=== PATIENT | female | born 1945 | race Caucasian/White ===

== ENCOUNTER 2017-09-20 14:07 | Emergency (ER) | payer OTHER ==
[~2017-09-20] VITALS: Ht 149.9 cm; Wt 94.8 kg
[~2017-09-20 14:07] MED LIST: BARIATRIC FUSION; BYETTA PEN 11 PENINJ SC; CALCIUM CITRAT250 MG; CELEBREX 200 M200 MG; COUMADIN 5 MG TA5 M1; CYCLOBENZAPRINE PO; CYMBALTA60 MG PO; DILTIAZEM PO; HUMALOG100 UNIT/1 SQ; LANTUS SC; LISINOPRIL40 MG PO; LOPRESSOR25; LOVENOX SC; LYRICA 50 MG50 MG PO; METFORMIN ER PO; NORCO 5-325 TA1 EACH PO; OXYIR5 MG PO; PERCOCET 5-3251 EACH PO; POTASSIUM20 PO; PRILOSEC40 MG; TAMBOCOR 100 M100 M1; TRIAMTERENE-HC1 EAC1 PO; ULTRAM 50MG TAB50 MG PO; VICODIN 5-5001 EACH; VIOKASE 8 TABL468 MG PO
[2017-09-20] MEDS ORDERED: METFORMIN HCL500 MG PO (14:17)
[2017-09-20] MEDS ORDERED: VALIUM5 MG PO (14:18)
[2017-09-20] MEDS ORDERED: OXYCODONE HCL 55 MG PO (14:18)
[2017-09-20] MEDS ORDERED: TYLENOL EXTRA500 MG PO (14:19)
[2017-09-20 14:51] LABS: ABSOLUTE BASOPHILS 0.1 thou/uL (0.0-0.2); ABSOLUTE EOSINOPHILS 0.1 thou/uL (0.0-0.7); ABSOLUTE LYMPHOCYTES 1.5 thou/uL (0.8-5.3); ABSOLUTE MONOCYTES 0.6 thou/uL (0.0-1.2); ABSOLUTE NEUTROPHILS 6.7 thou/uL (1.6-8.1); BASOPHILS 1.2 %; HEMATOCRIT 39.9 % (37.0-47.0); HEMOGLOBIN 13.1 gm/dL (12.0-15.0); MCH 28.2 pg (26.0-34.0); MCHC 32.9 g/dL (28.0-37.0); MCV 85.6 fL (80.0-100.0); MONOCYTES 6.3 %; MPV 9.1 fl. (7.2-11.1); NUCLEATED RBCS 0 /100WBC; PLATELET COUNT* 268 thou/uL (150-400); POLYS 74.5 %; RBC 4.66 mil/uL (4.20-5.00); RDW-CV 15.4 % (10.5-14.5)
[2017-09-20 14:55] LABS: ANION GAP 7 mmol/L (7-16); BUN 29 mg/dL (7-18); CALCIUM 9.8 mg/dL (8.5-10.1); CHLORIDE 101 mmol/L (98-107); CO2 31 mmol/L (21-32); CREATININE 0.8 mg/dL (0.6-1.3); GLUCOSE 150 mg/dL (70-99); POTASSIUM 4.5 mmol/L (3.5-5.1); SODIUM 139 mmol/L (136-145)
[2017-09-20 15:00] LABS: APTT 33.4 Seconds (25.0-31.3); INR 1.7; PROTIME 16.3 Seconds (9.20-11.50)
[2017-09-20 15:02] LABS: ALBUMIN 3.3 g/dL (3.4-5.0); ALKALINE PHOSPHATASE 62 U/L (46-116); SGOT 25 U/L (15-37); SGPT 29 U/L (30-65); TOTAL BILIRUBIN 0.3 mg/dL (<0.1-1.0); TOTAL PROTEIN 7.4 g/dL (6.4-8.2); TROPONIN-I LEVEL <0.06 ng/mL (<0.06)
[2017-09-20 16:11] LABS: URINE BILIRUBIN NEGATIVE (Negative); URINE BLOOD NEGATIVE (Negative); URINE CLARITY SL CLOUDY; URINE COLOR YELLOW; URINE GLUCOSE-RANDOM NEGATIVE (Negative); URINE KETONES NEGATIVE (Negative); URINE LEUKOCYTES-REFLEX NEGATIVE (Negative); URINE NITRITE-REFLEX NEGATIVE (Negative); URINE PROTEIN NEGATIVE (Negative); URINE UROBILINOGEN 0.2 E.U./dl (0.2-1.0)
[2017-09-20 16:23] LABS: BACTERIA-REFLEX >30 Many /HPF (None Seen); CRYSTALS None Seen /LPF (None Seen); HYALINE CASTS 0-3 Few /LPF (None Seen); SQUAMOUS >10 Many /LPF (0-3)
[2017-09-20 16:24] LABS: URINE RBC None Seen /HPF (0-2); URINE WBC-REFLEX 0-5 Rare /HPF (0-5)
[2017-09-20 17:26] VITALS: BP 148/67
--- NOTE | 2017-09-21 18:41 | EKG ---
[place] [address] ELECTROCARDIOGRAM REPORT Name: YANY CROUCH Room: [facility]#: [id number] Admission: 09/20/17 Attend Phys: Discharge: 09/20/17 Date of : 41 Report #: [id number] THIS REPORT FOR: //name// [facility] ED Test Date: 2017-09-20 Test Time: 14:56:29 Pat Name: YANY CROUCH Department: Room: Gender: F News Copy Editor: LING : 1945 Requested By: Susan Sandoval Order Number: [id number] MD: Gerard Mackenzie Measurements Intervals [place] Rate: 85 P: 37 CA: 162 QRS: 8 QRSD: 112 T: 93 QT: 397 QTc: 472 Interpretive Statements Sinus rhythm Borderline intraventricular conduction delay Compared to ECG 03/14/2011 00:55:04 No significant changes Electronically Signed On 09-21-2017 18:40:58 CDT by Gerard Mackenzie [email or web address] <ELECTRONICALLY SIGNED> By: Gerard Mackenzie MD, [facility] 09/21/17 1840 [id number] 145 Gerard Mackenzie MD, FACC /EPI
== END 2017-09-20 17:27 | disposition home or self-care (01) ==
LOC: M.ERS 14:07
PROVIDERS: Nurse Practitioner Family
DX: R53.1 Weakness (principal); I10 Essential (primary) hypertension; E11.9 Type 2 diabetes mellitus without complications; G47.30 Sleep apnea, unspecified; M79.7 Fibromyalgia; Z90.49 Acquired absence of other specified parts of digestive tract

== ENCOUNTER → 2018-02-02 | Outpatient (CLI) | payer OTHER ==
[~2018-02-02] MED LIST changes: +METFORMIN HCL500 MG PO; +OXYCODONE HCL 55 MG PO; +TYLENOL EXTRA500 MG PO; +VALIUM5 MG PO
== END ==
LOC: M.RAD 10:29
DX: M16.0 Bilateral primary osteoarthritis of hip (principal); M25.551 Pain in right hip; M25.552 Pain in left hip; Z68.41 Body mass index [BMI] 40.0-44.9, adult

== ENCOUNTER → 2018-03-22 | Outpatient (CLI) | payer OTHER ==
[2018-03-22 08:49] LABS: INR 1.1
[2018-03-22 08:53] LABS: POTASSIUM 3.4 mmol/L (3.5-5.1)
== END ==
LOC: M.LAB 01:04
PROVIDERS: Internal Medicine Gastroenterology
DX: Z01.812 Encounter for preprocedural laboratory examination (principal); E11.9 Type 2 diabetes mellitus without complications; Z79.01 Long term (current) use of anticoagulants

== ENCOUNTER → 2018-05-21 | Outpatient (CLI) | payer OTHER ==
[2018-05-21 12:06] LABS: INR 2.2; PROTIME 22.5 Seconds (9.20-11.50)
== END ==
LOC: M.LAB 11:26
PROVIDERS: Internal Medicine Cardiovascular Disease
DX: I48.0 Paroxysmal atrial fibrillation (principal)

== ENCOUNTER → 2019-07-08 | Outpatient (CLI) | payer OTHER ==
[2019-07-08 13:19] LABS: ABSOLUTE BASOPHILS 0.1 thou/uL (0.0-0.2); ABSOLUTE EOSINOPHILS 0.1 thou/uL (0.0-0.7); ABSOLUTE LYMPHOCYTES 1.7 thou/uL (0.8-5.3); ABSOLUTE MONOCYTES 0.6 thou/uL (0.0-1.2); ABSOLUTE NEUTROPHILS 4.9 thou/uL (1.6-8.1); BASOPHILS 0.9 %; EOSINOPHILS 1.7 %; HEMOGLOBIN 12.5 gm/dL (12.0-15.0); LYMPHOCYTES 22.4 %; MCH 29.2 pg (26.0-34.0); MCHC 33.8 g/dL (28.0-37.0); MCV 86.3 fL (80.0-100.0); MONOCYTES 8.5 %; MPV 9.8 fl. (7.2-11.1); NUCLEATED RBCS 0 /100WBC; PLATELET COUNT* 169 thou/uL (150-400); POLYS 66.5 %; RBC 4.29 mil/uL (4.20-5.00); RDW-CV 14.3 % (10.5-14.5); WBC 7.4 thou/uL (4.0-11.0)
[2019-07-08 13:26] LABS: CALCIUM 8.8 mg/dL (8.5-10.1); CREATININE 1.2 mg/dL (0.6-1.3); PHOSPHORUS* 3.4 mg/dL (2.5-4.9); POTASSIUM 4.2 mmol/L (3.5-5.1)
[2019-07-08 13:40] LABS: CALCIUM 8.8 mg/dL (8.5-10.1); CREATININE 1.1 mg/dL (0.6-1.3); PHOSPHORUS* 3.6 mg/dL (2.5-4.9)
[2019-07-08 23:08] LABS: IgA 160 mg/dL (64-422); IgG 862 mg/dL (586-1602); IgM 60 mg/dL (26-217)
[2019-07-10 10:07] LABS: KAPPA FREE LIGHT CHAINS 100.3 mg/L (3.3-19.4); LAMBDA FREE LIGHT CHAINS 20.1 mg/L (5.7-26.3)
== END ==
LOC: M.LAB 12:39
PROVIDERS: Internal Medicine
DX: N28.9 Disorder of kidney and ureter, unspecified (principal)